=== PATIENT | female | born 1960 | race Caucasian/White ===

== ENCOUNTER 2017-01-06 15:54 | Emergency (ER) | payer BC ==
[2017-01-06 18:13] VITALS: BP 110/70
--- NOTE | 2017-01-06 18:15 | UC ---
Abdominal Pain Female HPI - HPI Summary HPI Summary: Worsening Left lower quad. pain---was able to eat breakfast, but has not been hungry all day-- has had a colonoscopy at [place] but does not know what the results said Also reports feeling fatigued for the past 3 months-- - History of Current Complaint Chief Complaint: UCGU Stated Complaint: HIP & GROIN PAIN,RASHES Time Seen by Provider: 01/06/17 17:02 Hx Obtained From: Patient Hx Last Menstrual Period: 2 weeks ago ?: No Onset/Duration: Sudden Onset, Lasting Hours - 12, Still Present Timing: Constant Severity Initially: Moderate Severity Currently: Moderate Pain Intensity: 7 Pain Scale Used: 0-10 Numeric Location: Discrete At: LLQ Radiates: No Character: Aching, Cramping Aggravating Factor(s): Nothing Alleviating Factor(s): Nothing Associated Signs and Symptoms: Positive: Decreased Appetite Allergies/Adverse Reactions: Allergies Allergy/AdvReac Type Severity Reaction Status Date / Time Penicillins Allergy Severe Hives Verified 01/06/17 16:11 Hydrocodone [From Vicodin] AdvReac Severe Vomiting Verified 01/06/17 16:11 PMH/Surg Hx/FS Hx/Imm Hx Previously Healthy: Yes Other History Of: Negative For: Anticoagulant Therapy - Surgical History Surgical History: Yes Surgery Procedure, Year, and Place: D&C, UTERINE POLYPS REMOVED (AUG 15, 2012). throat surgery - something to do with "the flap in my throat". 2 C-sections - Family History Known Family History: Positive: None Family History: no reported cardiovascular issues in family lineage - Social History Occupation: Employed Full-time Lives: With Family Alcohol Use: Rare Substance Use Type: None Smoking Status (MU): Former Smoker Review of Systems Constitutional: Fatigue Skin: Negative Eyes: Negative ENT: Negative Respiratory: Negative Cardiovascular: Negative Gastrointestinal: Abdominal Pain Genitourinary: Negative Motor: Negative Neurovascular: Negative Musculoskeletal: Negative Neurological: Negative Psychological: Negative All Other Systems Reviewed And Are Negative: Yes Physical Exam Triage Information Reviewed: Yes Appearance: Well-Appearing, No Pain Distress, Well-Nourished Vital Signs: Initial Vital Signs Temp 98.8 F 01/06/17 16:10 Pulse 92 01/06/17 16:10 Resp 12 01/06/17 16:10 BP 108/65 01/06/17 16:10 Pulse Ox 99 01/06/17 16:10 Vital Signs Reviewed: Yes Eye Exam: Normal Eyes: Positive: Conjunctiva Clear ENT Exam: Normal ENT: Positive: Normal ENT inspection, Hearing grossly normal, Pharynx normal, TMs normal. Negative: Nasal congestion, Nasal drainage, Tonsillar swelling, Tonsillar exudate, Trismus, Muffled/hoarse voice Dental Exam: Normal Neck exam: Normal Neck: Positive: Supple, Nontender, No Lymphadenopathy Respiratory Exam: Normal Respiratory: Positive: Chest non-tender, Lungs clear, Normal breath sounds, No respiratory distress, No accessory muscle use Cardiovascular Exam: Normal Cardiovascular: Positive: RRR, No Murmur, Pulses Normal, Brisk Capillary Refill Abdominal Exam: Normal Abdomen Description: Positive: No Organomegaly, Soft, Other: - llq tenderness Bowel Sounds: Positive: Present Musculoskeletal Exam: Normal Musculoskeletal: Positive: Strength Intact, ROM Intact, No Edema Neurological Exam: Normal Neurological: Positive: Alert, Muscle Tone Normal Psychological Exam: Normal Skin: Positive: rashes - chronic hyperpigmentation in groin and lower abdomen Abd Pain Female Course/Dx - Course Course Of Treatment: NPO, tranfer AMA by [facility] to [facility] for evaluation of abd pain - Differential Dx/Diagnosis Differential Diagnosis: Bowel Obstruction, Diverticulitis Provider Diagnoses: LLQ Pain - Physician Notification/Consults Time Discussed With Above Provider: 18:15 - nurse report Discharge - Discharge Plan Condition: Stable Disposition: AGAINST MEDICAL ADVICE
== END 2017-01-06 18:13 | disposition left against medical advice (07) ==
LOC: UCEAST 15:54
DX: R10.32 Left lower quadrant pain (principal); Z87.891 Personal history of nicotine dependence
CPT/HCPCS: 99212; G0463

== ENCOUNTER 2017-01-06 18:37 | Emergency (ER) | payer BC ==
[2017-01-06] MEDS ORDERED: diPHENhydraMINE IV* 25 MG in NS 0.9% 50 ML* 50 ML IVPB ONE (21:51)
[2017-01-06] MEDS ORDERED: Ondansetron INJ* 2 MG/ML VIAL IV ONE (21:51)
[2017-01-06] MEDS ORDERED: Morphine INJ* 4 MG/ML 1 ML SYRINGE IV ONE (21:51)
[2017-01-06] MEDS ORDERED: NS 0.9% 1000 ML* 1,000 ML IV ONE (21:51)
[2017-01-06 21:59] LABS: Hematocrit 41 % (35-47); Hemoglobin 13.3 g/dl (12.0-16.0); Mean Corpuscular HGB Conc 32 g/dl (31-36); Mean Corpuscular Hemoglobin 29 pg (27-31); Mean Corpuscular Volume 89 fL (80-97); Mean Platelet Volume 10 um3 (7.4-10.4); Red Blood Count 4.59 10^6/ul (4.0-5.4); Red Cell Distribution Width 13 % (10.5-15); White Blood Count 9.5 10^3/ul (3.5-10.8)
[2017-01-06 22:14] LABS: Albumin 4.2 g/dL (3.2-5.2); BUN/Creatinine Ratio 13.9 (8-20); C Reactive Protein 8.48 mg/L (< 5.00); Calcium 9.5 mg/dL (8.6-10.3); EGFR African American 97.5 (>60); EGFR Non-African American 75.8 (>60); Potassium 3.4 mmol/L (3.5-5.0); Total Bilirubin 0.4 mg/dL (0.2-1.0); Total Protein 7.2 g/dL (6.4-8.9)
[2017-01-06] MEDS ORDERED: Iohexol 300* (CONTRAST) 10 ML SDV IV ONE (22:35)
[2017-01-07 01:12] LABS: Urine Bacteria 1+ (Absent); Urine Bilirubin Negative (Negative); Urine Glucose Negative (Negative); Urine Nitrite Negative (Negative)
--- NOTE | 2017-01-07 01:53 | ED ---
Anjelica Buitrago Alok, scribed for Kaley Bobby MD on 01/07/17 at 0146 . Progress - Progress Note Progress Note: Abd/Pel CT - IMRESSION: NO EVIDENCE OF ACUTE PATHOLOGY. MODERATE-SIZED HIATAL HERNIA. 56 yo female who describes llq and flank pain since tue michell, +nausea, no emesis. Her CT of her abd and pelvis were negative, her ovaries on the CT were normal. Her urine is positive and she does have cva tenderness on exam by me. Plan is to give pt one dose of ceftriaxone IV with keflex as an outpt with zofran. Pt also points to hyperpigmented areas on groin, top of right foot which she has had for some time, of note she does have rheumatoid arthritis. 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
[2017-01-07] MEDS ORDERED: Morphine INJ* 4 MG/ML 1 ML SYRINGE IV ONE (01:54)
[2017-01-07] MEDS ORDERED: cefTRIAXone VIAL(*) 1,000 MG in NS 0.9% 50 ML* 50 ML IVPB ONE (01:54)
[2017-01-07] MEDS ORDERED: Ondansetron INJ* 2 MG/ML VIAL IV ONE (01:54)
[2017-01-07] MEDS ORDERED: Ondansetron ODT TAB* 4 MG PO ONE (01:58)
[2017-01-07] MEDS ORDERED: Acetaminop/Codeine 30 MG TAB* 1 TAB (300 MG/30 MG) PO ONE (01:58)
[2017-01-07 02:56] VITALS: BP 100/66
--- NOTE | 2017-01-07 07:49 | RAD ---
CLINICAL HISTORY: Left lower quadrant pain. COMPARISON: Most recent comparison examination is a CT of the abdomen and pelvis dated July 10, 2013. TECHNIQUE: Contrast enhanced CT examination of the abdomen and pelvis from the lung bases through the initial tuberosities. The patient received 85 mL Omnipaque 300 intravenously prior to imaging.The patient received oral contrast as well prior to imaging. FINDINGS: VISUALIZED LUNG BASES: The visualized lung bases are grossly clear. There is no pleural effusion. ABDOMEN AND PELVIS: There is a moderate-sized hiatal hernia. The liver, spleen, pancreas and adrenal glands are grossly normal in appearance. The gallbladder is normal. The kidneys are normal in appearance without focal mass, calcification or signs of hydronephrosis. Oral contrast has progressed as far as the proximal sigmoid colon. The small and large bowel are not distended. The appendix measures just under 8 mm in diameter with oral contrast and gas in the lumen (image 39 of 91 on the coronal images) without focal inflammatory changes. There is no gross retroperitoneal or mesenteric lymphadenopathy. The pelvic viscera is normal in appearance. The abdominal aorta and iliac arteries are normal in course and diameter. Degenerative changes include multilevel loss of intervertebral disc height involving the lower thoracic and lumbar spine. Most severe changes are at L5/S1 where there is vacuum disc phenomenon and marginal osteophyte formation..There are no sinister bone lesions. IMPRESSION: 1. Moderate size hiatal hernia. 2. No CT evidence of acute pathology involving the gastrointestinal tract. 3. Additional chronic and degenerative changes described in the body of the report.
== END 2017-01-07 03:09 | disposition home or self-care (01) ==
LOC: ED 18:37
DX: R10.32 Left lower quadrant pain (principal); K44.9 Diaphragmatic hernia without obstruction or gangrene
CPT/HCPCS: 36415; 74177; 80053; 81003; 81015; 83605; 83690; 85025; 86140; 87086; 96365; 96375; 99284; A9270-GY; J0696; J1200; J2270; J2405; Q9967

== ENCOUNTER 2017-05-05 08:40 | Observation (INO) | payer BC ==
[2017-05-05] MEDS ORDERED: Metoclopramide IV* 5 MG/ML 2 ML VIAL IV ONE (10:43)
[2017-05-05] MEDS ORDERED: NS 0.9% 1000 ML* 1,000 ML IV ONE (10:43)
[2017-05-05] MEDS ORDERED: Meclizine TAB* 12.5 MG PO ONE (11:04)
[2017-05-05 11:12] LABS: Hematocrit 40 % (35-47); Hemoglobin 13.3 g/dl (12.0-16.0); Mean Corpuscular HGB Conc 34 g/dl (31-36); Mean Corpuscular Hemoglobin 30 pg (27-31); Mean Corpuscular Volume 90 fL (80-97); Mean Platelet Volume 9 um3 (7.4-10.4); Red Blood Count 4.42 10^6/ul (4.0-5.4); Red Cell Distribution Width 13 % (10.5-15); White Blood Count 8.6 10^3/ul (3.5-10.8)
--- NOTE | 2017-05-05 11:31 | RAD ---
INDICATION: Dizziness. COMPARISON: Comparison is made with a prior CT of the brain from [email or web address]. TECHNIQUE: Contiguous axial sections of the brain were obtained from the skull base to the vertex without contrast. FINDINGS: The ventricles, cisterns and sulci are within normal limits. No significant focal abnormality or mass effect is seen. There is no evidence for hemorrhage. No significant focal osseous abnormality is seen. The visualized portion of the paranasal sinuses and mastoid air cells appear clear. IMPRESSION: NO EVIDENCE FOR GROSS ACUTE INFARCT, MASS EFFECT OR HEMORRHAGE.
--- NOTE | 2017-05-05 11:32 | RAD ---
HISTORY: Shortness of breath COMPARISONS: November 13, 2015 VIEWS: 1: frontal portable view of the chest at 10:55 AM FINDINGS: LINES AND TUBES: None. CARDIOMEDIASTINAL SILHOUETTE: The cardiomediastinal silhouette is normal for portable technique. PLEURA: The costophrenic angles are sharp. No pleural abnormalities are noted. LUNG PARENCHYMA: The lungs are clear. ABDOMEN: The upper abdomen is clear. There is no subphrenic gas. BONES AND SOFT TISSUES: No bone or soft tissue abnormalities are noted. IMPRESSION: NO ACTIVE CARDIOPULMONARY DISEASE.
[2017-05-05 11:33] LABS: Albumin 4.2 g/dL (3.2-5.2); BUN/Creatinine Ratio 15.5 (8-20); Calcium 9.6 mg/dL (8.6-10.3); EGFR African American 109.9 (>60); EGFR Non-African American 85.5 (>60); Globulin 3.1 g/dL (2-4); Magnesium 1.8 mg/dL (1.9-2.7); Potassium 3.5 mmol/L (3.5-5.0); Total Bilirubin 0.5 mg/dL (0.2-1.0); Total Protein 7.3 g/dL (6.4-8.9)
[2017-05-05 11:55] LABS: TSH (Thyroid Stimulating Horm) 2.62 mcIU/mL (0.34-5.60)
[2017-05-05 13:24] LABS: Urine Bacteria Absent (Absent); Urine Bilirubin Negative (Negative); Urine Glucose Negative (Negative); Urine Nitrite Negative (Negative)
[2017-05-05] MEDS ORDERED: Acetaminophen TAB* 325 MG PO PRN (13:47)
[2017-05-05] MEDS ORDERED: Ondansetron INJ* 2 MG/ML VIAL IV PRN (13:47)
--- NOTE | 2017-05-05 14:54 | ED ---
Raj Buitrago Thomas, scribed for Barrington Payton MD on 05/05/17 at 1036 . Dizziness - HPI Summary HPI Summary: The pt is a 57 y/o F presenting to the ED c/o dizziness that she noticed today at 07:00 upon waking up. She describes the dizziness as lightheadedness, blurred vision, and a feeling of being off balance. The dizziness is aggravated and alleviated by nothing. The patient has treated the dizziness with nothing CLINICAL CODER. Pt additionally c/o N/V, diaphoresis, SOB, tingling in her arms, L-sided posterior BOWMAN (7/10), and generalized weakness. When asked if she is having a hard time speaking, she says it is hard to talk. However, she speaks in full sentences without disruption. Her last known well time was yesterday at 22: 30.She states she went to bed feeling completely fine and woke up feeling the way she does now this morning at 0700AM. Pt denies dysphagia, CP, abd pain, dysuria, and hematuria. The patient attributes her symptoms to receiving the Hep B shot yesterday. She takes a medication for her lichens sclerosus. PMHx: lichens sclerosus. PSHx: , dental procedures. SHx: former smoker, no alcohol use. FHx: CA. 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 - History Of Current Complaint Chief Complaint: EDDizziness Stated Complaint: SOB/VOMITTING/FEVER/DIZZY Time Seen by Provider: 05/05/17 10:25 Hx Obtained From: Patient Onset/Duration: Still Present Timing: Hours - onset today at 07:00 Character: Lightheaded, Weak, Dizzy Aggravating Factor(s): Nothing Alleviating Factor(s): Nothing Associated Signs And Symptoms: Positive: Nausea, Vomiting, Diaphoresis, SOB, Other: - Tingling in her arms, L-sided posteroir BOWMAN, generalized weakness; NEGATIVE: dysphagia, CP, abd pain, dysuria, hematuria - Allergies/Home Medications Allergies/Adverse Reactions: Allergies Allergy/AdvReac Type Severity Reaction Status Date / Time Penicillins Allergy Severe Hives Verified 01/06/17 16:11 Hydrocodone [From Vicodin] AdvReac Severe Vomiting Verified 01/06/17 16:11 Home Medications: Home Medications Clobetasol 0.05% OINT* 1 applic TOPICAL BID 05/05/17 [History Confirmed 05/05/17 ] Methotrexate TAB* 12.5 mg PO WEEKLY 05/05/17 [History Confirmed 05/05/17] PMH/Surg Hx/FS Hx/Imm Hx Previously Healthy: No - Lichens sclerosus Endocrine/Hematology History: Denies: Hx Anticoagulant Therapy, Hx Blood Disorders, Hx Diabetes - Cancer History Hx Chemotherapy: No Hx Radiation Therapy: No - Surgical History Surgery Procedure, Year, and Place: D&C, UTERINE POLYPS REMOVED (AUG 15, 2012). throat surgery - something to do with "the flap in my throat". 2 C-sections Infectious Disease History: No Infectious Disease History: Denies: Traveled Outside the [place] in Last 30 Days - Family History Known Family History: Positive: Hypertension, Other - CA Family History: no reported cardiovascular issues in family lineage - Social History Alcohol Use: None Hx Substance Use: No Substance Use Type: Reports: None Hx Tobacco Use: Yes Smoking Status (MU): Former Smoker Review of Systems Positive: Skin Diaphoresis. Negative: Fever Negative: Other - NEGATIVE: dysphagia Negative: Chest Pain Positive: Shortness Of Breath Positive: Vomiting, Nausea. Negative: Abdominal Pain Negative: dysuria, hematuria Neurological: Other - Dizziness (characterized as lightheadedness, blurred vision, and feeling of being off balance), tingling in her arms, geernalized weakness, "hard time to talk" (although speaks in full sentences) All Other Systems Reviewed And Are Negative: Yes Physical Exam Triage Information Reviewed: Yes Vital Signs On Initial Exam: Initial Vitals Temp Pulse Resp BP Pulse Ox 97.1 F 78 20 125/66 99 05/05/17 08:43 05/05/17 08:43 05/05/17 08:43 05/05/17 08:43 05/05/17 08:43 Vital Signs Reviewed: Yes Appearance: Positive: No Pain Distress Skin: Positive: Warm, Skin Color Reflects Adequate Perfusion Head/Face: Positive: Normal Head/Face Inspection Eyes: Positive: EOMI, PRABHAKAR, Other: - no photophobia ENT: Positive: Normal ENT inspection, Pharynx normal Neck: Positive: Nontender. Negative: Nuchal Rigidity Respiratory/Lung Sounds: Positive: Clear to Auscultation, Breath Sounds Present Cardiovascular: Positive: RRR. Negative: Murmur Abdomen Description: Positive: Nontender Musculoskeletal: Positive: Strength/ROM Intact Neurological: Positive: Sensory/Motor Intact, Alert, Oriented to Person Place, Time, CN Intact II-III, Finger to Nose - smooth, Speech Normal. Negative: Slurred Speech Psychiatric: Positive: Anxious - [place] Coma Scale Best Eye Response: 4 - Spontaneous Best Motor Response: 6 - Obeys Commands Best Verbal Response: 5 - Oriented Coma Scale Total: 15 Diagnostics - Vital Signs Vital Signs Temp Pulse Resp BP Pulse Ox 05/05/17 10:21 70 17 110/66 100 05/05/17 08:43 97.1 F 78 20 125/66 99 - Laboratory Result Diagrams: 05/05/17 10:50 05/05/17 10:50 Lab Statement: Any lab studies that have been ordered have been reviewed, and results considered in the medical decision making process. - Radiology CXR Xray Interpretation: No Acute Changes - No active cardiopulmonary disease. ED physician has reviewed this radiology report and agrees. Radiology Interpretation Completed By: Radiologist - CT CT Brain CT Interpretation: No Acute Changes - CT Brain without contrast shows no evidence for gross acute infarct, mass effect or hemorrhage. ED physician has reviewed this radiology report and agrees. CT Interpretation Completed By: Radiologist - EKG 10:50 Cardiac Rate: NL - 69 BPM EKG Interpretation: Sinus rhythm. Nonspecific T abnormalities in anterior leads. Dizzy Course/Dx - Course Assessment/Plan: The pt is a 57 y/o F c/o dizziness that began today at 07:00 and is described as lightheadedness, blurred vision, and a feeling of being off balance. Pt additionally c/o N/V, diaphoresis, SOB, tingling in her arms, L- sided posterior BOWMAN (7/10), and generalized weakness. In the ED course the patient was given IV fluids, Reglan, and meclizine. Bloodwork was obtained. EKG reveals no STEMI. CT Brain without contrast shows no evidence for gross acute infarct, mass effect or hemorrhage. CXR shows no active cardiopulmonary disease. ED physician has reviewed these radiology reports and agrees. - Diagnoses Provider Diagnoses: Dizziness, Chest pain, Headache, Nonspecific ST-T wave electrocardiographic changes - Provider Notifications Discussed Care Of Patient With: Sarina Blair Time Discussed With Above Provider: 12:35 Instructed by Provider To: Other - I consulted with Dr. Blair regarding patient care. She [place] [facility] [place]charge - Discharge Plan Condition: Good Disposition: ADMITTED TO [facility] The documentation as recorded by the Raj fabian Thomas accurately reflects the service I personally performed and the decisions made by me, Barrington Payton MD.
[2017-05-05] MEDS ORDERED: Magnesium Sulfate 2 GM IV* 2 GM/50 ML BAG IVPB ONE (15:00)
[2017-05-05] MEDS: Meclizine TAB* 12.5 MG PO SCH ×2 (15:27→21:48)
--- NOTE | 2017-05-05 16:00 | HP ---
CC: Dr. Pope * ADMISSION HISTORY AND PHYSICAL: DATE OF ADMISSION: PRIMARY CARE PROVIDER: Dr. Pope. ADMITTING PROVIDER: TANYA Braden SUPERVISING PHYSICIAN: Dr. Sarina Lowery * (DICTATED BY TANYA BRADEN) CHIEF COMPLAINT: Nausea, vomiting, dizziness, and shortness of breath. HISTORY OF PRESENT ILLNESS: This is a 57-year-old female with lichen sclerosus , maintained on methotrexate and topical therapy, who presented to the emergency department with complaints of dizziness, nausea, vomiting, and shortness of breath that started suddenly this morning. The patient is concerned that there may be an association with the hepatitis B vaccine that she received yesterday. She denies any other acute illness, [id number] medications, or other new prescribed medications. She has had no associated diarrhea or abdominal pain. She also reports some intermittent numbness and tingling in her right arm without associated weakness. The patient has been afebrile at home. She denies any history of similar symptoms. In the emergency department, she received meclizine, Reglan, and a liter of fluids with some but not a significant amount of improvement. PAST MEDICAL HISTORY: Lichen sclerosus. PAST SURGICAL HISTORY: None. HOME MEDICATIONS: 1. Clobetasol ointment 0.05% apply topically twice daily. 2. Methotrexate 12.5 mg p.o. weekly. SOCIAL HISTORY: The patient denies a history of smoking. She socially consumes alcohol. 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 REVIEW OF SYSTEMS: As listed above in HPI. All other systems reviewed and considered negative. PHYSICAL EXAMINATION GENERAL: This is a pleasant 57-year-old female, who appears in no acute distress, accompanied by her sister. VITAL SIGNS: Initial vitals, temperature 97.1 degrees Fahrenheit, pulse 78 beats per minute, respiratory rate 20 per minute, oxygen saturation 99% on room air, and blood pressure of 125/66 mmHg. HEENT: Head is normocephalic, atraumatic. Mucous membranes are pink and moist. RESPIRATORY: Lungs are clear to auscultation without wheezes, crackles, or rhonchi. CARDIOVASCULAR: Heart has a regular rate and rhythm without murmurs, rubs, or gallops. ABDOMEN: Soft and nontender to palpation. EXTREMITIES: No edema. NEURO: Cranial nerves II through XII are intact. Gait was not specifically assessed but strength is grossly intact throughout all extremities. SKIN: Evaluated site of injection over the right deltoid, which appears to be benign. DIAGNOSTIC STUDIES/LAB DATA: CBC shows a white blood cell count of 8600, hemoglobin of 13.3 g/dL, and a platelet count of 270,000. Comprehensive metabolic panel is unremarkable with a sodium of 140 mmol/L, potassium of 3.5, serum bicarb of 24, BUN 11, creatinine 0.71, random glucose of 102 mg/dL. Magnesium slightly low at 1.8. Transaminases and total bilirubin within normal limits. Troponin negative at 0.00. TSH normal at 2.6. Urinalysis shows 3+ leuk esterase and is otherwise negative. Imaging: EKG shows a sinus rhythm with inverted T waves in V1 through V4 without prior EKGs available for comparison. Chest x-ray shows no acute process. CT of the brain shows no acute process. ASSESSMENT AND PLAN: This is a 57-year-old female who presents with complaints of nausea, vomiting, and dizziness, as well as intermittent numbness in her right arm. She will be admitted for further evaluation and observation. 1. Nausea, vomiting, and dizziness - the patient's laboratory evaluation is unremarkable. Her exam is nonfocal. She complains of associated intermittent numbness in her right arm, which is the site of injection, but the injection site appears to be benign. She complains of shortness of breath at least at the time of admission, but no hypoxia or adventitious lung sounds. No evidence of angioedema or other signs of anaphylaxis. It seems unlikely that this would be related to her vaccination from yesterday, but it is possible. Also, consider vertigo as that would explain the majority of her symptoms. She received a liter of bolus in the emergency department. We will start scheduled meclizine and maintain continuous telemetry monitoring. We will plan to repeat basic metabolic panel in the morning. 2. Hypomagnesemia - this is mild and likely unrelated to her symptoms, but we will replete accordingly. 3. Lichen sclerosus - the patient's symptoms appeared to be stable on methotrexate, which the patient can resume following discharge. 4. Code status. The patient is full code. 5. Healthcare proxy is her . 6. DVT prophylaxis. The patient will be started on subcu Lovenox. DISPOSITION: The patient is being admitted to observation status, we will anticipate the length of stay to be less than 2 midnights. TANYA BRADEN [id number]/[facility] #: [id number] [place]
[2017-05-05] MEDS ORDERED: Enoxaparin(*) 40 MG/0.4 ML SYR SUBCUT SCH (18:00)
[2017-05-05] MEDS: Clobetasol 0.05% OINT* 30 GM TUBE TOPICAL SCH (21:48)
[2017-05-06 06:02] LABS: Hematocrit 38 % (35-47); Hemoglobin 12.6 g/dl (12.0-16.0); Mean Corpuscular HGB Conc 33 g/dl (31-36); Mean Corpuscular Hemoglobin 30 pg (27-31); Mean Corpuscular Volume 91 fL (80-97); Mean Platelet Volume 9 um3 (7.4-10.4); Red Cell Distribution Width 13 % (10.5-15); White Blood Count 7.4 10^3/ul (3.5-10.8)
[2017-05-06] MEDS: Meclizine TAB* 12.5 MG PO SCH (06:06)
[2017-05-06 06:15] LABS: BUN/Creatinine Ratio 11.1 (8-20); Calcium 8.6 mg/dL (8.6-10.3); EGFR African American 94.4 (>60); EGFR Non-African American 73.4 (>60); Potassium 3.4 mmol/L (3.5-5.0)
[2017-05-06] MEDS: Clobetasol 0.05% OINT* 30 GM TUBE TOPICAL SCH (09:38)
[2017-05-06 11:56] VITALS: BP 100/59
--- NOTE | 2017-05-07 12:22 | DS ---
AMENDED REPORT NOW INCLUDES COSIGNER DESIGNATION - ESIGNED BEFORE ADJUSTMENT CC: Dr. Baldemar Pope * DISCHARGE SUMMARY: DATE OF ADMISSION: 05/05/17 DATE OF DISCHARGE: 05/06/17 PRIMARY CARE PROVIDER: Dr. Baldemar Pope. MY ATTENDING WHILE IN THE HOSPITAL: Dr. Merrill Mendiola * (DICTATED BY TANYA HEATON) PRIMARY DISCHARGE DIAGNOSIS: Benign paroxysmal positional vertigo. SECONDARY DISCHARGE DIAGNOSIS: Lichen sclerosis. HOME MEDICATIONS ON DISCHARGE: 1. Clobestasol 0.05% ointment 1 application topical b.i.d. 2. Methotrexate tab 12.5 mg p.o. weekly. 3. Zofran ODT 4 mg p.o. q.6 hours as needed. 4. Meclizine 12.5 mg p.o. t.i.d. as needed for dizziness. STUDIES DONE WHILE IN THE HOSPITAL: Brain CT read as no evidence of gross acute infarct, mass effect, or hemorrhage. Chest x-ray read as no acute cardiopulmonary disease. Electrocardiogram shows on admission normal sinus rhythm, no ST-segment changes. Normal axis. No other significant abnormalities. This is consistent with the study from 05/06/17. HOSPITAL COURSE: This is a brief summary of the patient's hospital course. For more details, please see the H and P by TANYA Arreola, 05/05/17. In brief, the patient is a 57-year-old female with past medical history significant for lichen sclerosis, who presented to the emergency department with dizziness, nausea, vomiting, and shortness of breath starting that morning , possibly related to hepatitis B vaccine. The patient also had numbness and tingling in the arm that had the vaccine. The patient was admitted and had the studies as above to rule out posterior circulation cerebrovascular accident all which came back negative. The patient's lab work was also benign. The patient showed no signs of allergic reaction to the injection site. The patient was given meclizine and telemetry monitoring and improved dramatically overnight complaining of only minor dizziness in the morning and no new symptoms including chest pain, shortness, nausea, or vomiting. The patient had a slight hypomagnesemia, which was treated and not rechecked. The patient was amenable to going home in the morning and to follow up with her primary care doctor. The patient stated that she was told that she had increased wax in her ears. PHYSICAL EXAMINATION ON DAY OF DISCHARGE: General: The patient is a 57-year- old female, who appears stated age and sitting comfortably on exam bed, in no acute distress. Vital Signs: At discharge, temperature 98, pulse rate 73, respiratory rate 18, oxygen saturation 97%, blood pressure 100/59. HEENT: Head : Normocephalic, atraumatic. Sclerae anicteric. No conjunctival injection. Nose: No drainage. Pharynx nonerythematous. Mucous membranes moist. Neck: No lymphadenopathy. Supple. Nontender. No carotid bruits auscultated. Cardiac: Regular rate and rhythm. No clicks, murmurs, gallops, or rubs. Pulses +2 in the bilateral dorsalis pedis, radial and posterior tibial areas. Respiratory: Clear to auscultation bilaterally. No wheezes, rales, or rhonchi. Good air exchange bilaterally. Abdomen: Soft, nontender, nondistended. Bowel sounds present, normoactive in all 4 quadrants. No abdominal bruit is auscultated. No hepatosplenomegaly. Skin: Clean, dry, and intact. No rashes. Neuro: Cranial nerves II through XII are intact except for several beats of horizontal nystagmus in extreme leftward gaze, not present on the right and that decreases with repeated eye motions. Strength preserved in the upper and lower extremities, distally and proximally bilaterally. Sensation to light touch intact in the upper and lower extremities. Gait: Normal. ASSESSMENT AND PLAN: The patient will be discharged on meclizine and Zofran for symptomatic management of presumptive diagnosis of benign paroxysmal positional vertigo. The patient's cerumen impaction may also be contributing to this. The patient should follow up with her primary care doctor in 1 week and for cerumen removal, the patient given the number of Rashel Duran PT, who specializes in vestibular PT to perform Melly maneuvers and vestibular re- coordination if her symptoms do no resolve quickly. The patient should have a normal unrestricted diet and activity as tolerated. This is a summary of the hospital course, for more detail see the complete medical record. TIME SPENT: Approximately 60 minutes was spent on this discharge, 30 of which was spent [id number] with the patient obtaining history and physical and discussing the discharge plan. TANYA HEATON [id number]/[facility] #: [id number] [place]
== END 2017-05-06 12:15 | disposition home or self-care (01) ==
LOC: ED 08:40 → MEDTELE 12:37
PROVIDERS: ADMIT Internal Medicine; ATTEND Hospitalist
DX: H81.10 Benign paroxysmal vertigo, unspecified ear (principal); R11.2 Nausea with vomiting, unspecified; E83.42 Hypomagnesemia; L90.0 Lichen sclerosus et atrophicus; R06.02 Shortness of breath; Z79.899 Other long term (current) drug therapy; Z88.0 Allergy status to penicillin; Z88.5 Allergy status to narcotic agent; Z87.891 Personal history of nicotine dependence; R94.31 Abnormal electrocardiogram [ECG] [EKG]
CPT/HCPCS: 36415; 70450; 71010; 80048; 80053; 81003; 81015; 83605; 83735; 83880; 84443; 84484; 85025; 85610; 87086; 93005; 96365; 96375; 99284; A9270-GY; G0378; J1650; J2405; J2765; J3475

== ENCOUNTER → 2019-01-02 16:04 | Emergency (ER) | payer BC, OTHER ==
--- NOTE | 2019-01-02 18:06 | ED ---
Laceration/Wound HPI - HPI Summary HPI Summary: Planes of accidental laceration to tip of left middle finger from knife today. No involvement of nail bed. Tetanus status updated within the past 5 years. - History of Current Complaint Stated Complaint: LT HAND INJ/MIDDLE FINGER LAC PER PT Time Seen by Provider: 01/02/19 16:52 Hx Obtained From: Patient Hx Last Menstrual Period: 2 weeks ago Mechanism of Injury: Sharp/Blunt Trauma Onset Severity: Moderate Current Severity: Moderate Pain Intensity: 5 Pain Scale Used: 0-10 Numeric Associated Signs & Symptoms: Negative - Allergy/Home Medications Allergies/Adverse Reactions: Allergies Allergy/AdvReac Type Severity Reaction Status Date / Time hydrocodone Allergy Vomiting Verified 01/02/19 16:19 Penicillins Allergy Hives Verified 01/02/19 16:19 PMH/Surg Hx/FS Hx/Imm Hx Endocrine/Hematology History: Denies: Hx Anticoagulant Therapy, Hx Blood Disorders, Hx Diabetes Cardiovascular History: Denies: Hx Pacemaker/ICD History: Denies: Hx Dialysis Sensory History: Reports: Hx Contacts or Glasses Denies: Hx Hearing Aid Opthamlomology History: Reports: Hx Contacts or Glasses Neurological History: Denies: Hx Dementia Psychiatric History: Denies: Hx Autism - Cancer History Hx Chemotherapy: No Hx Radiation Therapy: No - Surgical History Surgery Procedure, Year, and Place: D&C, UTERINE POLYPS REMOVED (AUG 15, 2012). throat surgery - something to do with "the flap in my throat". 2 C-sections Infectious Disease History: No Infectious Disease History: Denies: Traveled Outside the [place] in Last 30 Days - Family History Known Family History: Positive: None, Hypertension, Other - [place] Family History: no reported cardiovascular issues in family lineage - Social History Alcohol Use: Rare Hx Substance Use: No Substance Use Type: Reports: None Hx Tobacco Use: Yes Smoking Status (MU): Former Smoker Review of Systems Constitutional: Negative Eyes: Negative ENT: Negative Cardiovascular: Negative Respiratory: Negative Gastrointestinal: Negative Genitourinary: Negative Musculoskeletal: Negative Skin: Other Neurological: Negative Psychological: Normal All Other Systems Reviewed And Are Negative: Yes Physical Exam - Summary Physical Exam Summary: Superficial laceration to tip of left middle finger with no involvement of nailbed. Triage Information Reviewed: Yes Vital Signs On Initial Exam: Initial Vitals Temp Pulse Resp BP Pulse Ox 98.5 F 115 16 121/88 96 01/02/19 16:13 01/02/19 16:13 01/02/19 16:13 01/02/19 16:13 01/02/19 16:13 Vital Signs Reviewed: Yes Appearance: Positive: Well-Appearing Skin: Positive: Warm Head/Face: Positive: Normal Head/Face Inspection Eyes: Positive: Normal ENT: Positive: Normal ENT inspection Neck: Positive: Supple Respiratory/Lung Sounds: Positive: Clear to Auscultation Cardiovascular: Positive: Normal Abdomen Description: Positive: Nontender Musculoskeletal: Positive: Normal Neurological: Positive: Normal Psychiatric: Positive: Normal AVPU Assessment: Alert - Lucien Coma Scale Best Eye Response: 4 - Spontaneous Best Motor Response: 6 - Obeys Commands Best Verbal Response: 5 - Oriented Coma Scale Total: 15 Procedures - Laceration/Wound Repair 1 Location: upper extremity Description: Linear Length, Depth and Shape: 1cm x .25cm Betadine Prep?: No Irrigated w/ Saline (ccs): 100 Laceration/Wound Explored: clean Closure: Skin Adhesive Debridement: minimal Number of Sutures: 0 Layer Closure?: No Sterile Dressing Applied?: No Diagnostics - Vital Signs Vital Signs Temp Pulse Resp BP Pulse Ox 01/02/19 16:13 98.5 F 115 16 121/88 96 - Laboratory Lab Statement: Any lab studies that have been ordered have been reviewed, and results considered in the medical decision making process. Laceration Repair Course/Dx - Course Course Of Treatment: Planes of accidental laceration to tip of left middle finger from knife today. No involvement of nail bed. Tetanus status updated within the past 5 years. Physical exam:Superficial laceration to tip of left middle finger with no involvement of nailbed. Vital signs within normal limits. Wound cleaned and repaired with skin adhesive. - Clinical Impression Provider Diagnoses: Laceration Discharge - Sign-Out/Discharge Documenting (check all that apply): Patient Departure Patient Received Moderate/Deep Sedation with Procedure: No - Discharge Plan Condition: Stable Disposition: HOME Patient Education Materials: Finger Laceration (ED), Skin Adhesive Care (ED) Referrals: Baldemar Pope MD [Primary Care Provider] - Additional Instructions: May wash wound with warm running water and soap starting tomorrow. Keep covered with Band-Aid until healed. Follow-up with primary care. - Billing Disposition and Condition Condition: STABLE Disposition: Home
[2019-01-02 19:00] VITALS: BP 128/83
== END | disposition home or self-care (01) ==
LOC: ED 16:04
DX: S61.213A Laceration without foreign body of left middle finger without damage to nail, initial encounter (principal); W26.0XXA Contact with knife, initial encounter; Y92.9 Unspecified place or not applicable
CPT/HCPCS: 12001; 99281